=== PATIENT | female | born 1980 | race Caucasian/White ===

== ENCOUNTER → 2020-04-23 13:05 | Outpatient (BNVA) | payer BC, SELFPAY | PROVIDERS: PCP Nurse Practitioner Family; Visit Provider Obstetrics & Gynecology | DX: Z11.59 Encounter for screening for other viral diseases (principal); R10.2 Pelvic and perineal pain; N80.9 Endometriosis, unspecified | CPT/HCPCS: 87635 ==

== ENCOUNTER 2020-04-28 07:10 | Day surgery (SDC) | payer BC, SELFPAY ==
[2020-04-24 09:17] VITALS: BMI 16.9
[2020-04-24 09:48] LABS: Basophils % 0.6 %; Eosinophils # 0.1 10^3/uL (0.0-0.8); Eosinophils % 1.6 %; Hematocrit 37.2 % (37.0-47.0); Hemoglobin 12.6 g/dL (11.5-15.3); Lymphocytes # 1.4 10^3/uL (0.8-4.8); Lymphocytes % 43.4 %; Mean Corpuscular HGB Conc 33.9 g/dL (30.0-36.0); Mean Corpuscular Hemoglobin 32.8 pg (28.0-34.0); Mean Corpuscular Volume 96.9 fL (81-99); Mean Platelet Volume 11.4 fL (7.4-10.4); Monocytes # 0.2 10^3/uL (0.2-0.9); Monocytes % 6.6 %; Neutrophils % 47.5 %; Nucleated Red Blood Cells % 0 %; Platelet Count 143 10^3/cmm (130-400); Red Blood Count 3.84 10^6/uL (4.1-5.3); Red Cell Distribution Width 12.7 % (12.1-15.1); White Blood Count 3.2 10^3/uL (4.0-10.0)
[2020-04-28] VITALS (12 sets, daily range): BP systolic 80–102; BP diastolic 51–85; PULSE 72–109; RESP 13–24; TEMP 36.2–37.1; O2SAT 95–99
[2020-04-28] MEDS: sodium chloride 0.9% 1,000 ML 30 ML IV (07:40)
[2020-04-28] MEDS: gabapentin 300 mg Capsule PO (07:41)
[2020-04-28] MEDS: ketorolac 30 mg/mL INJ IVP (07:42)
--- NOTE | 2020-04-28 08:20 | W.PM.OPSUD ---
Surgery/Procedure H&P Update DATE OF PROCEDURE: April 28, 2020 DATE H&P PERFORMED: 04/17/20 H&P UPDATE INFORMATION: I have reviewed H&P completed within last 30 days, I have examined patient prior to procedure, No changes to prior documentation and H&P is in [facility] EMR on date indicated PREOP DIAGNOSIS: Endometriosis, Dyspareunia PLANNED PROCEDURE: Operation Date: 04/28/20 09:00 Proposed Procedures p Laparoscopic Salpingo Oophorectomy 74796 N80.9 R10.2 N94.10(Bilateral) - Keith Nieves MD
--- NOTE | 2020-04-28 08:53 | ANES.PREANE2 ---
Pre-Anesthetic Assessment Pre-Anesthetic Assessment: Height/Weight: Height 1.65 m Weight 46.266 kg Temp Pulse Resp BP Pulse Ox 97.1 F L 89 16 102/74 99 04/28/20 07:23 04/28/20 07:23 04/28/20 07:23 04/28/20 07:23 04/28/20 07:23 Preop Diagnosis: Endometriosis, Dyspareunia Proposed Procedure: Operation Date: 04/28/20 09:00 Proposed Procedures p Laparoscopic Salpingo Oophorectomy 70598 N80.9 R10.2 N94.10(Bilateral) - Keith Nieves MD Familial anesthetic complications: None Was Beta Tonya taken within 24 hours: N/A Last intake: Intake Last Liquid Date 04/27/20 Last Liquid Time 22:00 Last Solid Date 04/27/20 Last Solid Time 20:00 Social: Social History: Tobacco and No alcohol Exam: Pre-Anes Outpt Exam: alert, oriented x 3, clear to auscultation bilaterally and regular rate & rhythm Airway: Cervical ROM: WNL MP: 2 Dentition: Full Anesthetic Plan: ASA status: 1 Anesthesia: General Risk of > 500 ml blood loss (7ml/kg in children): No Meds/Allergies Current Medications: Current Medications Generic Name Dose Route Start Last Admin Trade Name Freq PRN Reason Stop Dose Admin Sodium Chloride 1,000 mls @ 30 ml s/hr 04/28/20 07:15 04/28/20 07:40 Sodium Chloride 0.9% IV 04/29/20 07:14 30 mls/hr .Q24H SARA Administration PFSH Anesthesia PFSH: Medical History Endometriosis Reports Hysterectomy in 2011 for endometriosis Fibrocystic breast changes, bilateral Surgical History History of section, low transverse (~2002) History of hysterectomy (~2011) LAVH with bladder surgery . [facility]. Family History Grandmother Ovarian cancer maternal Mother Hypertension Social History (Updated 04/21/20 @ 15:51 by Keith Nieves MD) Smoking and tobacco status: current every day smoker cigarettes Packs smoked per day: 0.5 Years cigarettes smoked: 23 Alcohol intake: current Alcohol intake frequency: holidays/special occasions only Data Anesthesia CBC & Chem 7: 04/24/20 09:30 Cardiac Studies: No Data to Display
--- NOTE | 2020-04-28 10:48 | P.OP_ITS ---
Operative Report Date of procedure: April 28, 2020 Pre-op Diagnosis: Endometriosis, Dyspareunia Post-op Diagnosis: Pelvic endometriosis, Dyspareunia Procedure Done: Laparoscopic bilateral salpingo-oophorectomy Specimens removed/disposition: Bilateral tubes and ovaries Surgeon: Keith Nieves Consumer Relations Complaint Clerk: Milton Anesthesia: General Estimated blood loss (mL): 5 IV fluids (mL): 1,000 Complications: None Findings: To powder burn lesions of the peritoneum within the right ovarian fossa overlying the internal iliac artery no other areas of endometriosis seen. Small adhesion band of the sigmoid to the vaginal cuff. Normal-appearing tubes and ovaries. Uterus was surgically absent. Normal-appearing appendix. Brief History: Patient is a 39-year-old 4, para 3-0-1-3 who is status post hysterectomy in 2011. She had had a laparoscopic assisted vaginal hysterectomy for endometriosis. Her ovaries were not removed at the time. She presented to my office on 08/22/2019 with complaints of worsening pain, especially with sex. This was associated with deeper penetration. It was not position related. She was reporting severe cramping pains as well that would double her over at times. Her pains were cyclic in nature and would worsen about the same time every month, raising the suspicions for endometriosis being the cause for her pain. As a result, she was started on Depo-Lupron for ovarian suppression with add back therapy. After her third injection, she stated that her pain with sex was completely gone and her cramping abdominal pain had also resolved. As a result she was requesting to go ahead and proceed with complete removal of both tubes and ovaries. She is presenting for this at this time. Procedure: The patient was taken to the operating room where general anesthesia was obtained. She was prepped and draped in the usual sterile fashion in the dorsal supine position. Sequential compression boots were placed prior to starting the case. Kaur catheter was inserted. The infraumbilical region was injected with 2% lidocaine with epinephrine. Skin incision was made with a knife in the lower edge of the navel and a size 10 trocar and sheath were inserted under direct visualization using an Optiview type technique. Trocar was removed and replaced with just the laparoscope confirming intra-abdominal placement. The anterior abdominal wall was inspected and noted to be free of adhesions. In the right and left lower quadrants, lateral to the inferior epigastric vessels,, the skin was injected with 2% lidocaine with epinephrine. Skin incision was made with the knife and a 5 mm tr ocar and sheath were inserted under direct visualization. The pelvis was thoroughly inspected. She had a small adhesion band between the sigmoid and the vaginal cuff on the left side. This was taken down sharply. She had 2 powder burn lesions within the right ovarian fossa located overlying the internal iliac artery. No other areas of endometriosis were seen. Both tubes and ovaries were normal in appearance. The appendix was normal in appearance. Using the Voyant sealing device, the right infundibulopelvic ligament was sealed and cut and the dissection carried along the underlying mesovarian and mesosalpinx until the ovary and tube were completely freed. This was then placed into the pelvis. The left infundibulopelvic ligament was sealed and cut and the dissection carried along the underlying mesovarium and mesosalpinx until the ovary and tube were completely freed. This was also placed in the pelvis. A laparoscopic pouch was passed through the umbilical sheath and ovaries placed within the pouch. The fascial incision was enlarged and the ovaries brought out through the incision. The pelvis was thoroughly irrigated and inspected and noted to be hemostatic. The abdomen was deflated and the sheaths removed. The 5 mm sites were closed with single stitches of 4-0 Vicryl suture. The fascia of the umbilical site was closed using 0 Vicryl suture in a running fashion. The skin edges were reapproximated using 4-0 Vicryl suture in a subcuticular fashion. Skin glue was applied. Kaur catheter was removed at the end of the case. Patient tolerated the procedures well. Sponge and needle counts were correct. DRAINS: None POSTOPERATIVE STATUS: The patient was transferred to the recovery room in satisfactory condition. DISPOSITION: Patient was to be discharged home when criteria was met. FOLLOWUP APPOINTMENT: Patient was to followup in my office on 05/14/2020. PRESCRIPTIONS: She received prescriptions for: Louisa 5/325, 1 to 2 tablets every 6 hours as needed for pain, #20, 0 refills Ibuprofen 800 mg, 1 tablet 3 times a day as needed for pain, #30, 0 refills Estradiol 1 mg, 1 tablet daily, 30, 12 refills Provera 2.5 mg, 1 tablet daily, 30, 12 refills
--- NOTE | 2020-04-28 11:09 | SUR.PHASEI ---
PT AWAKES VERBALIZED PAIN (SO SO) VSS ABD SOFT WITH THREE SITES WITH EXOFIN D/I PT ON RA TRIAL,GOOD RESP NOTED AND PT QUICKLY BACK TO SLEEP
[2020-04-28] MEDS: ondansetron 2 mg/ML SDV 2 mL 4 MG IVP (11:15)
[2020-04-28] MEDS: fentaNYL 50 mcg/mL INJ 2mL IVP (11:16)
[2020-04-28] MEDS: HYDROcodone-acetaminophen 5-325 mg Tablet 1 TAB PO (11:42)
--- NOTE | 2020-04-28 14:27 | ANE.PACU2 ---
Inpatient post-anesthesia follow up: Airway intact: Yes Vital signs: Temperature 98.4 F Pulse Rate 72 Respiratory Rate 18 Blood Pressure 80/52 Pulse Oximetry 98 Oxygen Delivery Me thod Room Air Oxygen Flow Rate 8 Fraction of Inspir ed Oxygen Hydration adequate: Yes Nausea and vomiting: No Pain level: 2 Mental status: Baseline
== END 2020-04-28 12:15 | disposition home or self-care (01) ==
PROVIDERS: PCP Nurse Practitioner Family; Visit Provider Obstetrics & Gynecology
PROC: (CPT 58661; principal; 2020-04-28 09:00)
DX: N80.3 Endometriosis of pelvic peritoneum (principal); F17.210 Nicotine dependence, cigarettes, uncomplicated; Z80.41 Family history of malignant neoplasm of ovary
CPT/HCPCS: 58661; 12345; 36415; 85025; 86850; 86900; 88305; J0131; J1885; J2405; J2704; J2710; J3010; J3490; J7030